=== PATIENT | female | born 1995 | race Caucasian/White ===

== ENCOUNTER 2016-08-25 18:48 | Emergency (ER) | payer SELFPAY ==
[~2016-08-25] VITALS: Ht 160 cm; Wt 56.7 kg
[~2016-08-25 18:48] MED LIST: DOCU-27 PO; Ibuprofen PO; OXYC-323 PO; PNV1TABL25 PO
[2016-08-25 20:02] LABS: OBC FLU VALID
[2016-08-25 20:30] VITALS: BP 129/67
--- NOTE | 2016-08-25 20:31 | PHYS DOC ---
Past Medical History Past Medical History: No Pertinent History Past Surgical History: No Surgical History Alcohol Use: None Drug Use: None Adult General Chief Complaint Chief Complaint: Congestion HPI HPI This is a 20-year-old female who states she had onset of chest pain around 1 PM that has now fully resolved. She denies any recent cough or congestion. She denies any fever or chills. She does not state any past medical history. Currently she has no chest pain whatsoever. Review of Systems Review of Systems Constitutional: Denies fever or chills [] Eyes: Denies change in visual acuity, redness, or eye pain [] HENT: Denies nasal congestion or sore throat [] Respiratory: Denies cough or shortness of breath [] Cardiovascular: No additional information not addressed in HPI [] GI: Denies abdominal pain, nausea, vomiting, bloody stools or diarrhea [] : Denies dysuria or hematuria [] Musculoskeletal: Denies back pain or joint pain [] Integument: Denies rash or skin lesions [] Neurologic: Denies headache, focal weakness or sensory changes [] Endocrine: Denies polyuria or polydipsia [] Allergies Allergies Allergies Coded Allergies Type Severity Reaction Last Updated Verified No Known Drug Allergies 12/15/14 No Physical Exam Physical Exam Constitutional: Well developed, well nourished, no acute distress, non-toxic appearance. [] HENT: Normocephalic, atraumatic, bilateral external ears normal, oropharynx moist, no oral exudates, nose normal. [] Eyes: PERRLA, EOMI, conjunctiva normal, no discharge. [] Neck: Normal range of motion, no tenderness, supple, no stridor. [] Cardiovascular:Heart rate regular rhythm, no murmur [] Lungs & Thorax: Bilateral breath sounds clear to auscultation [] Abdomen: Bowel sounds normal, soft, no tenderness, no masses, no pulsatile masses. [] Skin: Warm, dry, no erythema, no rash. [] Back: No tenderness, no CVA tenderness. [] Extremities: No tenderness, no cyanosis, no clubbing, ROM intact, no edema. [] Neurologic: Alert and oriented X 3, normal motor function, normal sensory function, no focal deficits noted. [] Psychologic: Affect normal, judgement normal, mood normal. [] Current Patient Data Vital Signs Vital Signs Date Time Temp Pulse Resp B/P Pulse Ox O2 Delivery O2 Flow Rate FiO2 08/25/16 19:41 98.3 61 16 132/69 97 Room Air 98.3 Lab Values Laboratory Tests Test 08/25/16 19:36 Influenza Type A Antigen Negative (NEGATIVE) Influenza Type B Antigen Negative (NEGATIVE) EKG EKG EKG as interpreted by me shows a sinus rhythm with rate of 63 bpm. There are no acute ST findings. Radiology/Procedures Radiology/Procedures Portable one view of the chest as interpreted by me reveals no acute cardiopulmonary process. Course & Med Decision Making Course & Med Decision Making Pertinent Labs and Imaging studies reviewed. (See chart for details) This otherwise healthy 20-year-old female with an episode of chest pain that was noted around 1 PM is now completely resolved. An EKG and a chest film are bili negative. Patient has no identifiable risk factors for cardiac disease. In light of fact that she has no chest pain, will be discharging her with strict instructions return of her chest pain continues and to follow closely with her regular doctor. Dragon Disclaimer Dragon Disclaimer This electronic medical record was generated, in whole or in part, using a voice recognition dictation system. Departure Departure Impression: Primary Impression: Chest pain Disposition: HOME, SELF-CARE Condition: STABLE Referrals: NO PCP (PCP) Patient Instructions: Chest Wall Pain, [id number] Additional Instructions: Please follow up with your primary doctor in the next 2-3 days for your chest pain. Return to the ER if you develop any worsening of your symptoms. KEON SABILLON DO Aug 25, 2016 20:31
--- NOTE | 2016-08-26 07:56 | RAD ---
Portable chest, 08/25/2016: History: Chest pain Comparison is made to a study from 10/05/2007. The heart size and pulmonary vascularity are normal. No pulmonary infiltrates are seen. There is no evidence of pleural fluid. There is a mild thoracic scoliosis. IMPRESSION: No acute cardiopulmonary abnormality is detected.
--- NOTE | 2016-08-26 08:19 | EKG ---
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
== END 2016-08-25 20:44 | disposition home or self-care (01) ==
LOC: ER 18:53
DX: R07.9 Chest pain, unspecified (principal)
CPT/HCPCS: 71010; 87804; 93005; 99285-25

== ENCOUNTER 2016-11-03 17:36 | Emergency (ER) | payer OTHER ==
[2016-11-03] MEDS ORDERED: ONDANSETRON PF 4 MG/2 ML VIAL. IV ONE (19:00)
[2016-11-03] MEDS ORDERED: IV NORMAL SALINE 1000ML BAG 1,000 ML IV ONE (19:00)
[2016-11-03] MEDS ORDERED: FENTANYL PF 100 MCG/2 ML VIAL. IV PRN (19:00)
[2016-11-03 19:25] LABS: BILIRUBIN,URINE NEGATIVE (NEG); GLUCOSE,URINE NEGATIVE (NEG); NITRITE,URINE NEGATIVE (NEG); PROTEIN,URINE NEGATIVE (NEG-TRACE); UROBILINOGEN,URINE 0.2 mg/dL (0.2 mg/dL)
[2016-11-03 19:28] LABS: BASO # 0.1 x10^3/uL (0.0-0.2); BASO % 1 % (0-3); EOS % 0 % (0-3); HEMATOCRIT 36.7 % (36.0-47.0); HEMOGLOBIN 12.4 g/dL (12.0-15.5); LYMPH # 1.5 x10^3/uL (1.0-4.8); LYMPH % 18 % (24-48); MEAN CORPUSCULAR HEMOGLOBIN 29 pg (25-35); MEAN CORPUSCULAR HGB CONC 34 g/dL (31-37); MEAN CORPUSCULAR VOLUME 87 fL (79-100); MONO % 5 % (0-9); NEUT % 76 % (31-73); PLATELET COUNT 154 x10^3/uL (140-400); RED BLOOD COUNT 4.24 x10^6/uL (3.50-5.40); RED CELL DISTRIBUTION WIDTH 14.1 % (11.5-14.5); WHITE BLOOD COUNT 8.2 x10^3/uL (4.0-11.0)
[2016-11-03 19:32] LABS: BACTERIA,URINE MODERATE /HPF (0-FEW); RBC,URINE 0 /HPF (0-2); SQUAMOUS EPITHELIAL CELL,UR MOD /LPF
[2016-11-03 19:40] LABS: CALCIUM 8.6 mg/dL (8.5-10.1); CREATININE 0.7 mg/dL (0.6-1.0); GFR 104.6; POTASSIUM 3.7 mmol/L (3.5-5.1)
--- NOTE | 2016-11-03 20:23 | PHYS DOC ---
Past Medical History Past Medical History: No Pertinent History Past Surgical History: No Surgical History Alcohol Use: None Drug Use: None Adult General Chief Complaint Chief Complaint: ABDOMINAL PAIN HPI HPI Patient is a 20 year old female who presents with abdominal pain. The patient reports 2 hour history of RLQ abdominal pain associated with nausea & loss of appetite. Denies fevers/chills, vomiting, diarrhea, constipation, dysuria/ hematuria, vaginal bleeding/discharge. Denies previous history of similar pain. Worse when riding in a car with bumps in the road. No abdominal surgeries. Review of Systems Review of Systems Constitutional: Denies fever or chills HENT: Denies nasal congestion or sore throat Respiratory: Denies cough or shortness of breath Cardiovascular: Denies chest pain or edema GI: Reports abdominal pain, nausea, denies vomiting, bloody stools or diarrhea : Denies dysuria or hematuria Musculoskeletal: Denies back pain or joint pain Integument: Denies rash or skin lesions Neurologic: Denies headache, focal weakness or sensory changes Current Medications Current Medications Current Medications Medications (Trade) Dose Ordered Sig/Dmitry Start Time Stop Time Status Last Admin Dose Admin Fentanyl Citrate (Fentanyl 2ml Vial) 50 mcg PRN Q15MIN PRN 11/03/16 19:00 11/04/16 18:59 11/03/16 19:19 50 MCG Info (Do NOT chart on this entry -- for MONITORING) 1 each PRN DAILY PRN 11/03/16 21:15 11/05/16 21:14 Iohexol (Omnipaque 240 Mg/ml) 30 ml 1X ONCE 11/03/16 21:15 11/03/16 21:16 DC 11/03/16 22:09 30 ML Iohexol (Omnipaque 300 Mg/ml) 75 ml 1X ONCE 11/03/16 21:15 11/03/16 21:16 DC 11/03/16 22:09 75 ML Ondansetron HCl (Zofran) 4 mg 1X ONCE 11/03/16 19:00 11/03/16 19:01 DC 11/03/16 19:20 4 MG Sodium Chloride (Iv Sodium Chloride 0.9% 1000ml Bag) 1,000 ml @ 1,000 mls/hr 1X ONCE 11/03/16 19:00 11/03/16 19:59 DC 11/03/16 19:20 1,000 MLS/HR Allergies Allergies Allergies Coded Allergies Type Severity Reaction Last Updated Verified No Known Drug Allergies 12/15/14 No Physical Exam Physical Exam Constitutional: Well developed, well nourished, no acute distress, non-toxic appearance. HENT: Normocephalic, atraumatic, bilateral external ears normal, oropharynx moist, nose normal. Eyes: conjunctiva normal, no discharge. Neck: supple, no stridor. Cardiovascular: RRR, no murmurs, no edema. Lungs & Thorax: LCTAB, no wheezing, no respiratory distress. Abdomen: normal bowel sounds, soft, RLQ tenderness with rebound/guarding, no masses or pulsatile masses, nondistended. : normal appearing female external genitalia, normal appearing cervix with closed os, right adnexal tenderness, no left adnexal tenderness, no CMT. Skin: Warm, dry, no erythema, no rash. Back: No CVA tenderness. Extremities: No tenderness, no edema. Neurologic: Alert and oriented X 3 Current Patient Data Vital Signs Vital Signs Date Time Temp Pulse Resp B/P Pulse Ox O2 Delivery O2 Flow Rate FiO2 11/03/16 19:19 16 100 Room Air 11/03/16 17:47 97.5 81 138/91 97.5 Lab Values Laboratory Tests Test 11/03/16 17:37 11/03/16 18:20 11/03/16 19:15 POC Urine HCG, Qualitative Hcg negative (Negative) Urine Collection Type Unknown Urine Color Yellow Urine Clarity Clear Urine pH 6.0 Urine Specific [place] 1.025 Urine Protein Negativemg/dL (NEG-TRACE) Urine Glucose (UA) Negativemg/dL (NEG) Urine Ketones (Stick) Negativemg/dL (NEG) Urine Blood Negative (NEG) Urine Nitrite Negative (NEG) Urine Bilirubin Negative (NEG) Urine Urobilinogen Dipstick 0.2mg/dL (0.2 mg/dL) Urine Leukocyte Esterase Small (NEG) Urine RBC 0/HPF (0-2) Urine WBC 5-10/HPF (0-4) Urine Squamous Epithelial Cells Mod/LPF Urine Bacteria Moderate/HPF (0-FEW) Urine Mucus Mod/LPF White Blood Count 8.2x10^3/uL (4.0-11.0) Red Blood Count 4.24x10^6/uL (3.50-5.40) Hemoglobin 12.4g/dL (12.0-15.5) Hematocrit 36.7% (36.0-47.0) Mean Corpuscular Volume 87fL (79-100) Mean Corpuscular Hemoglobin 29pg (25-35) Mean Corpuscular Hemoglobin Concent 34g/dL (31-37) Red Cell Distribution Width 14.1% (11.5-14.5) Platelet Count 154x10^3/uL (140-400) Neutrophils (%) (Auto) 76% (31-73) H Lymphocytes (%) (Auto) 18% (24-48) L Monocytes (%) (Auto) 5% (0-9) Eosinophils (%) (Auto) 0% (0-3) Basophils (%) (Auto) 1% (0-3) Neutrophils # (Auto) 6.3x10^3uL (1.8-7.7) Lymphocytes # (Auto) 1.5x10^3/uL (1.0-4.8) Monocytes # (Auto) 0.4x10^3/uL (0.0-1.1) Eosinophils # (Auto) 0.0x10^3/uL (0.0-0.7) Basophils # (Auto) 0.1x10^3/uL (0.0-0.2) Sodium Level 139mmol/L (136-145) Potassium Level 3.7mmol/L (3.5-5.1) Chloride Level 103mmol/L (98-107) Carbon Dioxide Level 26mmol/L (21-32) Anion Gap 10 (6-14) Blood Urea Nitrogen 15mg/dL (7-20) Creatinine 0.7mg/dL (0.6-1.0) Estimated GFR (Cockcroft-Gault) 104.6 Glucose Level 90mg/dL (70-99) Calcium Level 8.6mg/dL (8.5-10.1) Laboratory Tests 11/03/16 19:15 Laboratory Tests 11/03/16 19:15 EKG EKG [] Radiology/Procedures Radiology/Procedures PROCEDURE: PELVIS W/TV Examination: Ultrasound pelvis. HISTORY History of right lower quadrant pain. COMPARISON None available. TECHNIQUE Transabdominal and transvaginal and within the pelvis. Findings : The uterus measures 8.3 x 4.3 x 4.0 centimeters. Endometrium is 7.6 millimeters in thickness. The right ovary measures 2.9 x 1.7 x 1.7 centimeters. The left ovary measures 3.9 x 2.6 x 2.5 centimeters. Blood flow identified in the right and left ovaries. Few follicles identified in the right and left ovaries. There is a cyst structure identified in the left ovary measuring 2 centimeter probably a cyst or follicle. The appendix could not be identified. No evidence of free fluid identified in the pelvis. IMPRESSION 1. 2 centimeters cyst or follicle identified in the left ovary. Otherwise unremarkable exam. 2. The appendix could not be identified. Electronically signed by: Jose Miguel Concepcion (Nov 03, 2016 21:10:02) DICTATED and SIGNED BY: JOSE MIGUEL CONCEPCION MD DATE: 11/03/162109[] CT abdomen and pelvis with IV contrast Impression : 1.The appendix is not completely identified. There is a small portion of the appendix which is identified on the coronal images grossly appears unremarkable. There is no evidence of inflammatory fat stranding identified in the right lower quadrant of the abdomen. Examination is somewhat limited due to lack of significant abdominal fat and due to multiple bowel loops in this region. Otherwise no acute intra-abdominal findings. Electronically signed by: Jose Miguel Concepcion (Nov 03, 2016 22:26:51) Course & Med Decision Making Course & Med Decision Making Pertinent Labs and Imaging studies reviewed. (See chart for details) The patient presents with right lower quadrant abdominal pain. Gave pain medication, IV fluids, Zofran. Labs as above. Obtained pelvic ultrasound with attempt to visualize appendix, appendix not visualized but no evidence of acute ovarian past neurology. Ordered CT of the abdomen and pelvis to rule out appendicitis which is pending at the end of my shift. Will transfer care to Dr. Abbott to follow-up CT and disposition accordingly. Patient in stable condition at the end of my shift. Sun Connolly MD [] Accepted care from Dr. Connolly at shift change pending CT a/p. Imaging as above not concerning for appendicitis. She is feeling better after medications and would like to go home. She is tolerating po. Strict return precautions given. She understands and agrees with plan. Dragon Disclaimer Dragon Disclaimer This electronic medical record was generated, in whole or in part, using a voice recognition dictation system. Departure Departure Impression: Primary Impression: Right lower quadrant abdominal pain Disposition: HOME, SELF-CARE Condition: STABLE Referrals: UNKNOWN PCP NAME (PCP) Patient Instructions: Abdominal Pain, Possible Early Appendicitis Additional Instructions: Take tylenol or ibuprofen as needed for pain. Follow up with your primary care doctor. Return for any concerns. SUN CONNOLLY MD Nov 03, 2016 20:23 Kurt ABBOTT MD Nov 03, 2016 23:03
--- NOTE | 2016-11-03 21:11 | RAD ---
Examination: Ultrasound pelvis. HISTORY History of right lower quadrant pain. COMPARISON None available. TECHNIQUE Transabdominal and transvaginal and within the pelvis. Findings : The uterus measures 8.3 x 4.3 x 4.0 centimeters. Endometrium is 7.6 millimeters in thickness. The right ovary measures 2.9 x 1.7 x 1.7 centimeters. The left ovary measures 3.9 x 2.6 x 2.5 centimeters. Blood flow identified in the right and left ovaries. Few follicles identified in the right and left ovaries. There is a cyst structure identified in the left ovary measuring 2 centimeter probably a cyst or follicle. The appendix could not be identified. No evidence of free fluid identified in the pelvis. IMPRESSION 1. 2 centimeters cyst or follicle identified in the left ovary. Otherwise unremarkable exam. 2. The appendix could not be identified. Electronically signed by: Jose Miguel Concepcion (Nov 03, 2016 21:10:02)
[2016-11-03] MEDS ORDERED: CONTRAST GIVEN MC PRN (21:15)
[2016-11-03] MEDS ORDERED: IOHEXOL 300 MG/ML 75 ML VIAL IV ONE (21:15)
[2016-11-03] MEDS ORDERED: IOHEXOL 240 MG/ML 50ML VIAL. PO ONE (21:15)
--- NOTE | 2016-11-03 22:28 | RAD ---
Examination: CT of the abdomen pelvis with oral and IV contrast. HISTORY History of right lower quadrant abdominal pain. COMPARISON None available. TECHNIQUE Axial CT images of the abdomen pelvis were performed with oral and IV contrast. Coronal and sagittal reformats were provided. Exposure: One or more of the following dose reduction technique were utilized for this examination: 1. Automated exposure control. 2.Adjustment of MA and /or KV according to patient size. 3. Use of iterative reconstruction technique. Findings: Visualized bibasal lung grossly appears unremarkable. No evidence of free air identified in the abdomen. The visualized liver, spleen, adrenals grossly appears unremarkable. The gallbladder is mildly distended. Visualized pancreas grossly appears unremarkable. Stomach is mildly distended. The small bowel is nondilated. The appendix is not completely identified however, a portion of the appendix may be visualized best seen on the coronal image 24 grossly appears unremarkable. No evidence of inflammatory fat stranding identified in the right lower quadrant of the abdomen. Evaluation is limited due to lack of significant abdomen fat and due to multiple bowel loops in the region of the pelvis. Mildly distended urinary bladder. Feces and gas noted throughout the colon. The bilateral kidneys enhance symmetrically. No evidence of bony destructive lesion identified. Impression : 1.The appendix is not completely identified. There is a small portion of the appendix which is identified on the coronal images grossly appears unremarkable. There is no evidence of inflammatory fat stranding identified in the right lower quadrant of the abdomen. Examination is somewhat limited due to lack of significant abdominal fat and due to multiple bowel loops in this region. Otherwise no acute intra-abdominal findings. Electronically signed by: Jose Miguel Concepcion (Nov 03, 2016 22:26:51)
--- NOTE | 2016-11-03 22:49 | ACF ---
Admission Forms Criteria ABDOMINAL PAIN Clinical Indications for Admission to Inpatient Care (Place 'X' for any and all applicable criteria): Admission is indicated for ANY ONE of the following(1)(2)(3)(4)(5): [ ]I. Inpatient admission required rather than observation care (Also use Abdominal Pain: Observation Care, as appropriate) because of ANY ONE of the following: [ ]a) Severe pain requiring acute inpatient management [ ]b) Identification of etiology/finding that requires inpatient care (eg, aortic dissection, free air) [ ]c) Absent bowel sounds with complete ileus(6) [ ]d) Suspected toxic megacolon [ ]e) Severe electrolyte abnormalities requiring inpatient care [ ]f) High fever or infection requiring inpatient admission as indicated by ANY ONE of following(7)(8): [ ] i) Appropriate outpatient or observational care antimicrobial treatment unavailable, not effective, or not feasible [ ] ii) Documented bacteremia [ ] iii) Temperature > 104.9 degrees F (oral) [ ] iv) T >103.1 F (oral) or < 96.8 F(rectal) that does not respond to all emergency treatment measures [ ]g) Signs of intestinal obstruction [B] [ ]h) Hemodynamic instability [ ]i) IV fluid to replace significant ongoing losses (greater than 3 L/m2 per day) (12)(13) [ ]j) Percutaneous or open drainage (eg, abscess, biliary tract ) procedures [ ]k) Parenteral nutrition regimen that must be implemented on inpatient basis [ ]l) Other condition,treatment or monitoring requiring inpatient admission. [ ]II. Peritoneal signs present [ ]III. Surgery needed that cannot be performed on an ambulatory basis. [ ]IV. Evaluation requires patient to not eat or drink for extended period ( eg, more than 24 hours). [ ]V. Contraindications and/or Inappropriate clinical situations for Observational Care in patients with abdominal pain, when ANY ONE of the following is required: [ ]a) Thorough evaluation is required to prevent catastrophic events due to delays in diagnosing (e.g.Mesenteric ischemia) 1,3 [ ]b) Patient with severe pathology or with chronic symptoms unlikely to improve in the ED stay (3) [ ]. General contraindications and/or Inappropriate clinical situations for Observational Care in patients with abdominal pain, when ANY ONE of the following is required: [ ]a) Prediction of prolongation of LOS based on ANY ONE of the following may be considered as a contraindication for observational care 2, 3, 4, 5, 6, 7, 8, 9, 10, 11 [ ]i) Age > 65 yrs. [ ]ii) Patient arriving by ambulance [ ]iii) Patient with high acuity [ ]iv) Patient requiring vital sign monitoring [ ]v) Patient on IV medication [ ]b) Systolic blood pressures 180mmHg 3,12 [ ]c) Patient with altered mental status including delirium and other alteration of consciousness, (3) [ ]d) Patient whose discharge disposition will be to a assisted home or rehabilitation home should not be managed in Emergency Department Observation Unit. CMS rule requires 3 days hospital stay before such placement.3,13 [ ]e) Patient with failure to thrive due to broad array of etiologies 3,16,17 [ ]f) Inability to ambulate 3,14 Extended stay beyond goal length of stay may be needed for(2)(3): [ ]a) Persistent abdominal pain with suspected intra-abdominal process [ ]b) Diagnosed condition requiring continued stay (e.g., pancreatitis, complicated diverticulitis) [ ]c) Surgery (e.g., colectomy) The original [facility] content created by [employer] has been revised. The portions of the content which have been revised are identified through the use of italic text or in bold, and [facility] has neither reviewed nor approved the modified material.All other unmodified content is copyright [employer]. Please see references footnoted in the original [facility] edition 2016 ANNY ARMENTA Nov 03, 2016 22:49
[2016-11-03 23:02] VITALS: BP 127/83
--- NOTE | 2016-11-07 01:54 | VNOTE ---
CALL BACK NOTE CALL BACK Microbiology 11/03/16 Urine Culture - Final, Complete 11/03/16 Urine Culture Result 1 (ZULEIKA) - Final, Complete Patient's urine was positive for Gardnerella vaginalis. Spoke with both Dr. Tinajero and Dr. Jha in regards to this patient's treatment. They feel that this patient does not need to be placed on any type of antibiotics in regards to this being noted in the urine. MANUEL HOLT APRN Nov 07, 2016 01:54
== END 2016-11-03 23:10 | disposition home or self-care (01) ==
LOC: ER 17:36
DX: R10.31 Right lower quadrant pain (principal); R11.0 Nausea; R63.0 Anorexia
CPT/HCPCS: 36415; 74177; 76830; 76856; 80048; 81001; 84703; 85027; 87086; 87491; 87591; 96361; 96374; 96375; 99285; J2405; J3010; J7030; Q9966; Q9967; 81025

== ENCOUNTER 2016-11-26 14:58 | Emergency (ER) | payer OTHER ==
[~2016-11-26] VITALS: Ht 162.6 cm; Wt 49.9 kg
[2016-11-26 15:08] VITALS: BP 130/80
[2016-11-26 15:32] LABS: BILIRUBIN,URINE NEGATIVE (NEG); GLUCOSE,URINE NEGATIVE (NEG); NITRITE,URINE NEGATIVE (NEG); PROTEIN,URINE NEGATIVE (NEG-TRACE); UROBILINOGEN,URINE 0.2 mg/dL (0.2 mg/dL)
[2016-11-26 15:38] LABS: BACTERIA,URINE FEW /HPF (0-FEW); RBC,URINE 0 /HPF (0-2); SQUAMOUS EPITHELIAL CELL,UR MOD /LPF
[2016-11-26] MEDS ORDERED: METR500T PO (16:08)
[2016-11-26] MEDS ORDERED: FLUC150T2 PO (16:08)
[2016-11-26] MEDS ORDERED: CEPH500T PO (16:08)
--- NOTE | 2016-11-26 16:08 | PHYS DOC ---
Past Medical History Past Medical History: No Pertinent History Past Surgical History: No Surgical History Alcohol Use: Rarely Drug Use: None Adult General Chief Complaint Chief Complaint: VAGINAL PROBLEM HPI HPI Patient is a 21 year old female with no significant medical history presents today with an abscess on the right labia as well as vaginal discharge for a couple days. Patient states she has history of BV. Patient denies any concern for STDs. Denies any fever. Review of Systems Review of Systems Constitutional: Denies fever or chills [] Eyes: Denies change in visual acuity, redness, or eye pain [] HENT: Denies nasal congestion or sore throat [] Respiratory: Denies cough or shortness of breath [] Cardiovascular: No additional information not addressed in HPI [] GI: Denies abdominal pain, nausea, vomiting, bloody stools or diarrhea [] : Vaginal discharge and labial abscess Musculoskeletal: Denies back pain or joint pain [] Integument: Denies rash or skin lesions [] Neurologic: Denies headache, focal weakness or sensory changes [] Endocrine: Denies polyuria or polydipsia [] Allergies Allergies Allergies Coded Allergies Type Severity Reaction Last Updated Verified No Known Drug Allergies 12/15/14 No Physical Exam Physical Exam Constitutional: Well developed, well nourished, no acute distress, non-toxic appearance. [] HENT: Normocephalic, atraumatic, bilateral external ears normal, oropharynx moist, no oral exudates, nose normal. [] Eyes: PERRLA, EOMI, conjunctiva normal, no discharge. [] Neck: Normal range of motion, no tenderness, supple, no stridor. [] Cardiovascular:Heart rate regular rhythm, no murmur [] Lungs & Thorax: Bilateral breath sounds clear to auscultation [] Abdomen: Bowel sounds normal, soft, no tenderness, no masses, no pulsatile masses. [] Skin: right lower labia with an open wound from ingrown hairs with yellow drainage and trace erythema, the area is warm TTP no fluctuance. Cervix is closed no CMT, no adnexal tenderness. Small amount of yellow drainage in the vaginal vault. Back: No tenderness, no CVA tenderness. [] Extremities: No tenderness, no cyanosis, no clubbing, ROM intact, no edema. [] Neurologic: Alert and oriented X 3, normal motor function, normal sensory function, no focal deficits noted. [] Psychologic: Affect normal, judgement normal, mood normal. [] Current Patient Data Vital Signs Vital Signs Date Time Temp Pulse Resp B/P (MAP) Pulse Ox O2 Delivery O2 Flow Rate FiO2 11/26/16 15:08 98.1 68 14 130/80 (97) 98 Room Air 98.1 Lab Values Laboratory Tests Test 11/26/16 14:26 11/26/16 15:25 POC Urine HCG, Qualitative Hcg negative (Negative) Urine Collection Type Unknown Urine Color Yellow Urine Clarity Cloudy Urine pH 7.0 Urine Specific [place] 1.015 Urine Protein Negative mg/dL (NEG-TRACE) Urine Glucose (UA) Negative mg/dL (NEG) Urine Ketones (Stick) Negative mg/dL (NEG) Urine Blood Negative (NEG) Urine Nitrite Negative (NEG) Urine Bilirubin Negative (NEG) Urine Urobilinogen Dipstick 0.2 mg/dL (0.2 mg/dL) Urine Leukocyte Esterase Moderate (NEG) Urine RBC 0 /HPF (0-2) Urine WBC 1-4 /HPF (0-4) Urine Squamous Epithelial Cells Mod /LPF Urine Amorphous Sediment Present /HPF Urine Bacteria Few /HPF (0-FEW) Microbiology 11/26/16 Wet Prep - Final, Complete EKG EKG [] Radiology/Procedures Radiology/Procedures [] Course & Med Decision Making Course & Med Decision Making Pertinent Labs and Imaging studies reviewed. (See chart for details) Patient has bacterial vaginosis, urinary tract infection, and an abscess on the right labia from ingrown hairs, abscess is open and draining there is nothing to drain today. Tetanus is up to date. Discharged with cephalexin, Flagyl and fluconazole. F/u with her PCP next week. Provided return precautions. Dragon Disclaimer Dragon Disclaimer This electronic medical record was generated, in whole or in part, using a voice recognition dictation system. Departure Departure Impression: Primary Impression: Bacterial vaginosis Additional Impressions: Urinary tract infection Abscess of right genital labia Disposition: HOME, SELF-CARE Condition: STABLE Referrals: NO PCP (PCP) Please follow up with your doctor in one week Patient Instructions: Abscess, Bacterial Vaginosis, Urinary Tract Infection Additional Instructions: You have right labial abscess from ingrown hairs, bacterial vaginosis, and urinary tract infection. We'll put you on several antibiotics, ensure you complete them. Follow-up with your own doctor in 1-2 weeks. Scripts Fluconazole (FLUCONAZOLE) 150 Mg Tablet 150 MG PO DAILY, #2 TAB Take one tablet today then repeat in 7 days Prov: ZOYA ANGELES APRN 11/26/16 Cephalexin (CEPHALEXIN) 500 Mg Tablet 1 TAB PO BID, #14 TAB Prov: ZOYA ANGELES APRN 11/26/16 Metronidazole (FLAGYL) 500 Mg Tablet 1 TAB PO BID, #14 TAB Prov: ZOYA ANGELES APRN 11/26/16 Problem Qualifiers Additional Impressions: Urinary tract infection Urinary tract infection type: site unspecified Hematuria presence: without hematuria Qualified Codes: N39.0 - Urinary tract infection, site not specified ZOYA ANGELES APRN November 26, 2016 16:08
== END 2016-11-26 16:11 | disposition home or self-care (01) ==
LOC: ER 14:58
DX: N76.4 Abscess of vulva (principal); N76.0 Acute vaginitis; N39.0 Urinary tract infection, site not specified
CPT/HCPCS: 81001; 84703; 87086; 87491; 87591; 99284; Q0111; 81025

== ENCOUNTER 2020-09-08 01:43 | Emergency (ER) | payer MEDICAID, OTHER ==
[~2020-09-08] VITALS: Ht 162.6 cm; Wt 59.0 kg
[~2020-09-08 01:43] MED LIST changes: +CEPH500T PO; +DOCU-109 PO; -DOCU-27 PO; +FLUC150T2 PO; +METR500T PO; -OXYC-323 PO; +OXYC1TAB15 PO
[2020-09-08 02:12] LABS: BILIRUBIN,URINE NEGATIVE (NEG); CLARITY,URINE CLEAR; COLOR,URINE YELLOW; NITRITE,URINE NEGATIVE (NEG); PROTEIN,URINE NEGATIVE (NEG-TRACE); UROBILINOGEN,URINE 0.2 mg/dL (0.2 mg/dL)
--- NOTE | 2020-09-08 02:15 | PHYS DOC ---
Past Medical History Past Medical History: No Pertinent History Past Surgical History: Tubal ligation Smoking Status: Never Smoker Alcohol Use: Rarely Drug Use: None General Adult EDM: Chief Complaint: ABDOMINAL PAIN HPI: HPI: Patient is a 24 year old female with no past medical history presents for abdominal pain. She states that 2 days ago she noticed a crampy contraction- like pain in her left lower quadrant. She states that today the pain started radiating across her lower abdomen. She states she has had this pain in the past and it was diagnosed as a pulled muscle. She cannot remember any inciting event. She states that the pain feels like a crampy contraction that will last for around 1 minute. She states that it comes and goes throughout the day. She states that sitting makes his pain worse and she has tried ibuprofen and Tylenol without relief. She had a normal bowel movement around 2 PM today that was soft. Her last menstrual period was the last week in July, and she has normal menstrual periods. She states she has had her tubes tied. She denies any fevers, headache, cough, sore throat, chest pain, shortness of breath, constipation, diarrhea, numbness, tingling, and weakness. Review of Systems: Review of Systems: Constitutional: Denies fever or chills. [] Eyes: Denies change in visual acuity. [] HENT: Denies nasal congestion or sore throat. [] Respiratory: Denies cough or shortness of breath. [] Cardiovascular: Denies chest pain or edema. [] GI: positive abdominal pain denies nausea, vomiting, bloody stools or diarrhea. [] : Denies dysuria. [] Musculoskeletal: Denies back pain or joint pain. [] Integument: Denies rash. [] Neurologic: Denies headache, focal weakness or sensory changes. [] Endocrine: Denies polyuria or polydipsia. [] Lymphatic: Denies swollen glands. [] Psychiatric: Denies depression or anxiety. [] Heart Score: Risk Factors: Risk Factors: DM, Current or recent (<one month) smoker, HTN, HLP, family history of CAD, obesity. Risk Scores: Score 0 - 3: 2.5% MACE over next 6 weeks - Discharge Home Score 4 - 6: 20.3% MACE over next 6 weeks - Admit for Clinical Observation Score 7 - 10: 72.7% MACE over next 6 weeks - Early Invasive Strategies Current Medications: Current Medications Medications (Trade) Dose Ordered Sig/Dmitry Start Time Stop Time Status Last Admin Dose Admin Ketorolac Tromethamine (Toradol Im) 60 mg 1X ONCE 09/08/20 02:30 09/08/20 02:31 Allergies: Allergies: Allergies Coded Allergies Type Severity Reaction Last Updated Verified No Known Drug Allergies 12/15/14 No Physical Exam: PE: Constitutional: Well developed, well nourished, no acute distress, non-toxic appearance. [] HENT: Normocephalic, atraumatic, bilateral external ears normal, oropharynx moist, no oral exudates, nose normal. [] Eyes: PERRLA, EOMI, conjunctiva normal, no discharge. [] Neck: Normal range of motion, no tenderness, supple, no stridor. [] Cardiovascular:Heart rate regular rhythm, no murmur [] Lungs & Thorax: Bilateral breath sounds clear to auscultation [] Abdomen: Bowel sounds normal, soft, no masses, no pulsatile masses. Minimal tenderness to palpation over left lower quadrant. Tender to palpation over supr apubic region. No rebound tenderness. Negative McBurney's, negative Keane's [] Skin: Warm, dry, no erythema, no rash. [] Back: No tenderness, no CVA tenderness. [] Extremities: No tenderness, no cyanosis, no clubbing, ROM intact, no edema. [] Neurologic: Alert and oriented X 3, normal motor function, normal sensory function, no focal deficits noted. [] Psychologic: Affect normal, judgement normal, mood normal. [] Current Patient Data: Labs: Laboratory Tests Test 09/08/20 01:59 POC Urine HCG, Qualitative Hcg negative (Negative) Vital Signs: Vital Signs Date Time Temp Pulse Resp B/P (MAP) Pulse Ox O2 Delivery O2 Flow Rate FiO2 09/08/20 01:55 97.6 85 16 120/67 (84) 96 Room Air 97.6 EKG: EKG: [] Radiology/Procedures: Radiology/Procedures: [] Course & Med Decision Making: Course & Med Decision Making Pertinent Labs and Imaging studies reviewed. (See chart for details) [] Was evaluated for chief complaint. Work-up consisted of urinary analysis. Patient with trace LEs in 1-4 WBCs. Patient will be discharged home with Pyridium and Macrobid. Dragon Disclaimer: Sharan Disclaimer: This electronic medical record was generated, in whole or in part, using a voice recognition dictation system. Departure Departure Impression: Primary Impression: Urinary tract infection Additional Impression: Suprapubic pain Referrals: NO PCP (PCP) Patient Instructions: Urinary Tract Infection Scripts Nitrofurantoin Monohyd/M-Cryst (MACROBID 100 MG CAPSULE) 100 Mg Capsule 1 CAP PO BID for 5 Days, #10 CAP 0 Refills Prov: SACHIN SCOTT DO 09/08/20 Phenazopyridine Hcl (PYRIDIUM) 200 Mg Tablet 1 TAB PO TID for urinary discomfort for 3 Days, #9 TAB 0 Refills Prov: SACHIN SCOTT DO 09/08/20 SACHIN SCOTT DO Sep 08, 2020 02:15
[2020-09-08 02:21] LABS: BACTERIA,URINE FEW /HPF (0-FEW); RBC,URINE 0 /HPF (0-2)
[2020-09-08] MEDS ORDERED: KETOROLAC 60 MG/2 ML VIAL. IM ONE (02:30)
[2020-09-08] MEDS ORDERED: PHEN-318 PO (02:48)
[2020-09-08] MEDS ORDERED: NITR100C62 PO (02:48)
[2020-09-08 02:51] VITALS: BP 115/79
== END 2020-09-08 02:58 | disposition home or self-care (01) ==
LOC: ER 01:43
DX: N39.0 Urinary tract infection, site not specified (principal); R10.2 Pelvic and perineal pain
CPT/HCPCS: 81001; 81025; 87086; 96372; 99283; J1885